=== PATIENT | female | born 1960 | race American Indian/Alaskan Native ===

== ENCOUNTER 2019-09-09 21:04 | Emergency (ER) | payer SELFPAY ==
[2019-09-09] MEDS ORDERED: methylPREDNISolone Sod Succinate 125 MG/2 ML INJ ONE (21:13)
[2019-09-09] MEDS ORDERED: FAMOTIDINE 20 MG/2 ML INJ IV ONE ×2 (21:14→21:48)
[2019-09-09] MEDS ORDERED: methylPREDNISolone Sod Succinate 125 MG/2 ML INJ IV ONE (21:48)
[2019-09-09] MEDS ORDERED: TRANEXAMIC ACID 1,000 MG in SODIUM CHLORIDE 0.9% 100 ML IV NR (22:00)
--- NOTE | 2019-09-09 22:59 | Emergency Department Report ---
ED General Adult HPI - General Chief complaint: Allergic Reaction Stated complaint: SWELLING Time Seen by Provider: 09/09/19 21:21 Source: patient, EMS Mode of arrival: Stretcher Limitations: No Limitations - History of Present Illness Initial comments: The patient presents to the emergency department with a chief complaint of swelling of her tongue. The patient states that started just prior to arrival. The patient does take lisinopril for hypertension. EMS gave the patient 100 mg of Benadryl in route. Patient states she is having some difficulty swallowing but is not having difficulty breathing. Patient denies any chest pain, shortness breath, or abdominal pain. -: Sudden Severity scale (0 -10): 0 Consistency: constant Improves with: none Worsens with: none Associated Symptoms: denies other symptoms Treatments Prior to Arrival: none - Related Data Previous Rx's Medication Instructions Recorded Last Taken Type predniSONE [Deltasone] 20 mg PO DAILY #15 tablet 09/10/19 Unknown Rx Allergies Allergy/AdvReac Type Severity Reaction Status Date / Time No Known Allergies Allergy Verified 09/09/19 21:15 ED Review of Systems ROS: Stated complaint: SWELLING Other details as noted in HPI Constitutional: denies: chills, fever Eyes: denies: eye pain, eye discharge, vision change ENT: denies: ear pain, throat pain Respiratory: denies: cough, shortness of breath, wheezing Cardiovascular: denies: chest pain, palpitations Endocrine: no symptoms reported Gastrointestinal: denies: abdominal pain, nausea, diarrhea Genitourinary: denies: urgency, dysuria, discharge Musculoskeletal: denies: back pain, joint swelling, arthralgia Skin: denies: rash, lesions Neurological: denies: headache, weakness, paresthesias Psychiatric: denies: anxiety, depression Hematological/Lymphatic: denies: easy bleeding, easy bruising ED Past Medical Hx - Past Medical History Previous Medical History?: Yes Hx Hypertension: Yes - Surgical History Past Surgical History?: Yes Additional Surgical History: hyst 2018 ankle 2000 and wrist surgery 2014 - Social History Smoking Status: Current Every Day Smoker Substance Use Type: Alcohol - Medications Home Medications: Home Medications Medication Instructions Recorded Confirmed Last Taken Type predniSONE [Deltasone] 20 mg PO DAILY #15 tablet 09/10/19 Unknown Rx ED Physical Exam - General Limitations: No Limitations General appearance: alert, in no apparent distress - Head Head exam: Present: atraumatic, normocephalic - Eye Eye exam: Present: normal appearance, PERRL, EOMI - ENT ENT exam: Present: mucous membranes moist, other (Patient has swelling to the anterior portion of her tongue but there is no swelling to the posterior aspect. Patient is able to swallow but there is some difficulty with swallowing.) - Neck Neck exam: Present: normal inspection - Respiratory Respiratory exam: Present: normal lung sounds bilaterally. Absent: respiratory distress - Cardiovascular Cardiovascular Exam: Present: regular rate, normal rhythm. Absent: systolic murmur, diastolic murmur, rubs, gallop - GI/Abdominal GI/Abdominal exam: Present: soft, normal bowel sounds - Extremities Exam Extremities exam: Present: normal inspection - Back Exam Back exam: Present: normal inspection - Neurological Exam Neurological exam: Present: alert, oriented X3 - Psychiatric Psychiatric exam: Present: normal affect, normal mood - Skin Skin exam: Present: warm, dry, intact, normal color. Absent: rash ED Course Vital Signs 09/09/19 09/09/19 21:44 21:50 Temperature 97.9 F Pulse Rate 71 62 Respiratory 12 10 L Rate Blood Pressure 125/71 [Left] O2 Sat by Pulse 100 100 Oximetry ED Medical Decision Making - Medical Decision Making Patient was given 125 mg of Solu-Medrol and 20 mg of Pepcid IV. Patient also received 1000 mg of Tranexamic acid Repeat examination was done of the patient at 11:45 PM after medications are given and she states she is improving compared to when she initially arrived. Reevaluation of the patient at 12:15 AM the patient's able to speak normally and states her tongue feels completely normal On final reexamination of the patient at 1 AM she states she is back to being able to speak and swallow and breathing is normal. Discussed with patient that she she will stop taking lisinopril due to the angioedema Critical Care Time: Yes Critical care time in (mins) excluding proc time.: 35 Critical care attestation.: If time is entered above; I have spent that time in minutes in the direct care of this critically ill patient, excluding procedure time. ED Disposition Clinical Impression: Angioedema Disposition: DC-01 TO HOME OR SELFCARE Is pt being admited?: No Does the pt Need Aspirin: No Condition: Stable Instructions: Angioedema (ED) Additional Instructions: Return if there is any sensation of difficulty with breathing or swallowing As discussed you must stop taking lisinopril and follow-up with your primary care physician for other medications for hypertension Referrals: PRIMARY CARE,MD [Primary Care Provider] - 3-5 Days [facility] [Provider Group] - 3-5 Days [facility] [Provider Group] - 3-5 Days [facility] [place] [Outside] - 3-5 Days [facility] [Provider Group] - 3-5 Days SIMON LLAMAS DO [Staff Physician] - 3-5 Days Time of Disposition: 01:11
[2019-09-10 03:29] VITALS: BP 146/76
== END 2019-09-10 02:20 | disposition home or self-care (01) ==
LOC: ED 21:04
DX: T78.3XXA Angioneurotic edema, initial encounter (principal); K14.8 Other diseases of tongue; Y92.89 Other specified places as the place of occurrence of the external cause
CPT/HCPCS: 96365; 96375; 99283; J2930